=== PATIENT | male | born 1965 | race Caucasian/White ===

== ENCOUNTER 2022-05-19 11:47 | Outpatient (CLI) | payer MEDICAID, SELFPAY | END 2022-05-19 11:48 | disposition home or self-care (01) | LOC: LAB 11:54 | PROVIDERS: Visit Provider Nurse Practitioner Family | DX: N40.0 Benign prostatic hyperplasia without lower urinary tract symptoms (principal) | CPT/HCPCS: 84153 ==

== ENCOUNTER 2022-07-02 11:56 | Outpatient (CLI) | payer BC, MEDICAID, SELFPAY ==
[2022-07-02 13:27] LABS: Prostate Specific Antigen 0.482 ng/mL (0-4)
== END 2022-07-02 11:57 | disposition home or self-care (01) ==
LOC: LAB 12:01
PROVIDERS: Visit Provider Urology
DX: R97.20 Elevated prostate specific antigen [PSA] (principal)
CPT/HCPCS: 36415; 84153

== ENCOUNTER 2023-10-12 15:12 | Outpatient (CLI) | payer BC, MEDICAID, SELFPAY ==
[2023-10-12 16:32] LABS: Prostate Specific Antigen 0.091 ng/mL (0-4)
== END 2023-10-12 15:13 | disposition home or self-care (01) ==
LOC: LAB 15:13
PROVIDERS: Visit Provider Nurse Practitioner Family
DX: N40.1 Benign prostatic hyperplasia with lower urinary tract symptoms (principal)
CPT/HCPCS: 36415; 84153

== ENCOUNTER 2024-05-23 09:57 | Outpatient (CLI) | payer OTHER, SELFPAY ==
--- NOTE | 2024-05-23 09:59 | CT_ITS ---
WS: [id number] LDCT LUNG CANCER SCREENING HISTORY: HX OF TOBACCO USE TECHNIQUE: Axial imaging performed from the apices to 1 cm below the costophrenic angles. Coronal and sagittal reformats are submitted with axial MIP series. All CT scans at [facility] use at least one of these dose optimization techniques: automated exposure control; mA and/or kV adjustment per patient size (includes targeted exams where dose is matched to clinical indication); or iterativ e reconstruction. DLP: 191.99 mGy.cm DIvol: Mean CTDIvol: 4.60 (mGy) COMPARISON: None available. Diagnostic quality: Satisfactory Lungs: 4 mm pleural tag in the posterior RIGHT upper lobe. Additional pleural nodule measuring 4 mm i n the posterior RIGHT upper lobe. No additional mass or nodule. No pneumonia. No endobronchial lesion s. Heart: Normal size heart with no pericardial effusion.. Other findings: Mild atherosclerosis aorta. Normal size pulmonary artery. No adenopathy. Normal adren al glands. CT/CT lung screening [id number] IMPRESSION: LUNG-RADS: 2-Benign Appearance or Behavior FOLLOW UP: 12 Month: Continue annual screening with LDCT OTHER FINDINGS (S MODIFIER): None.
== END 2024-05-23 09:58 | disposition home or self-care (01) ==
LOC: RAD 09:58
PROVIDERS: PCP Family Medicine; Visit Provider Family Medicine
DX: Z12.2 Encounter for screening for malignant neoplasm of respiratory organs (principal); Z87.891 Personal history of nicotine dependence; R91.8 Other nonspecific abnormal finding of lung field; I70.0 Atherosclerosis of aorta
CPT/HCPCS: 71271